=== PATIENT | female | born 1960 | race Caucasian/White ===

== ENCOUNTER 2019-12-28 12:13 | Outpatient (CLI) | payer MEDICAID ==
[~2019-12-28] VITALS: Ht 170.2 cm; Wt 54.4 kg
[2019-12-28 14:00] VITALS: BP 131/78
[2019-12-28] MEDS ORDERED: LORATADINE10 M1 PO (14:00)
[2019-12-28] MEDS ORDERED: NAPROXEN500 M2 ORAL (14:00)
[2019-12-28] MEDS ORDERED: NORVASC5 MG ORAL (14:00)
--- NOTE | 2019-12-28 17:15 | Consultation ---
DATE OF CONSULTATION: 12/28/2019 CONSULTING PHYSICIAN: Salty Laboy M.D. CHIEF COMPLAINT: Stool OB positive. PAST MEDICAL HISTORY: 1. Arthritis. 2. Hypertension. 3. Endometriosis. PAST SURGICAL HISTORY: Cosmetic surgeries, laparoscopy for endometriosis, and tonsillectomy. MEDICATIONS: Norvasc, Naprosyn, and loratadine. ALLERGIES: To Bactrim. FAMILY HISTORY: Father had coronary artery disease. Mother had lymphoma. SOCIAL HISTORY: The patient occasionally drinks. No tobacco abuse. No IV drug abuse. REVIEW OF SYSTEMS: Complains of mild diarrhea. PHYSICAL EXAMINATION: VITAL SIGNS: Temperature 98.6, blood pressure 131/78, pulse 62, and respirations 20. HEENT: Normocephalic and atraumatic. Sclerae anicteric. NECK: Supple. No evidence of obvious adenopathy. CARDIOVASCULAR: Regular rate and rhythm. Plus S1 and S2. LUNGS: Decreased breath sounds bilaterally on the supine exam. ABDOMEN: Soft, nontender. No rebound. No guarding. No peritoneal sign. EXTREMITIES: No cyanosis, no clubbing, no edema. ASSESSMENT AND PLAN: This is a 59-year-old female with stool OB positive, possibly secondary to NSAID. But given age of 59 and no prior history of colonoscopy, the patient will need EGD and colonoscopy. The patient was given instruction for colonoscopy. The prep was explained to her. We will schedule her when authorization is obtained. Salty Laboy M.D. DR: OPAL JOB#: [id number] CC:
== END 2019-12-28 15:43 | disposition home or self-care (01) ==
LOC: PAN 12:13
DX: K92.1 Melena (principal); M19.90 Unspecified osteoarthritis, unspecified site; I10 Essential (primary) hypertension; Z88.8 Allergy status to other drugs, medicaments and biological substances; R19.7 Diarrhea, unspecified
CPT/HCPCS: G0463